=== PATIENT | female | born 1965 | race Two or more races ===

== ENCOUNTER 2017-03-22 06:40 | Emergency (ER) | payer OTHER ==
[~2017-03-22] VITALS: Ht 154.9 cm; Wt 63.5 kg
== END 2017-03-22 20:47 | disposition home or self-care (01) ==
LOC: ER 06:40
DX: K52.9 Noninfective gastroenteritis and colitis, unspecified (principal); F06.4 Anxiety disorder due to known physiological condition

== ENCOUNTER 2021-07-22 16:25 | Emergency (ER) | payer OTHER ==
[~2021-07-22] VITALS: Ht 154.9 cm; Wt 56.7 kg
[2021-07-22] MEDS ORDERED: PYRIDIUM DS200 MG PO (18:15)
[2021-07-22] MEDS ORDERED: UTIX PO (18:15)
== END 2021-07-22 18:22 ==
LOC: ER 16:25
DX: N39.0 Urinary tract infection, site not specified (principal); B96.20 Unspecified Escherichia coli [E. coli] as the cause of diseases classified elsewhere; R31.9 Hematuria, unspecified